=== PATIENT | male | born 1950 | race African-American/Black ===

== ENCOUNTER 2016-12-28 18:00 | Inpatient (IN) | payer OTHER ==
[~2016-12-28] VITALS: Ht 172.7 cm; Wt 98.0 kg
[2016-12-28 18:43] LABS: BASOPHIL % 0.6 % (0-2); PLATELET COUNT 183 x10^3mcL (130-400)
[2016-12-28 19:12] LABS: CK-MB 3.2 ng/mL (0-3.6)
[2016-12-28] MEDS ORDERED: COZAAR100 MG PO (20:36)
[2016-12-28] MEDS ORDERED: NOR10 (20:36)
[2016-12-28] MEDS ORDERED: SYMBICORT1 AE3 (20:38)
[2016-12-28] MEDS ORDERED: LOSARTAN POTAS100 M1 PO (20:40)
[2016-12-28] MEDS ORDERED: AMLODIPINE BESY10 M2 PO (20:40)
[2016-12-28] MEDS ORDERED: LATANOPROST2.5 ML OU (20:41)
[2016-12-28] MEDS ORDERED: MONTELUKAST SOD10 M1 PO (20:41)
[2016-12-28 21:12] LABS: ALBUMIN 3.7 g/dL (3.4-5.0); BILIRUBIN TOTAL 0.4 mg/dL (0.20-1.00); CALCIUM 10.2 mg/dL (8.5-10.1); CARBON DIOXIDE 25.6 mmol/L (21-32); CREATININE SERUM 1.4 mg/dL (0.7-1.3); POTASSIUM SERUM 3.5 mmol/L (3.5-5.1); TOTAL PROTEIN, SERUM 6.8 g/dL (6.4-8.2)
[2016-12-28 21:16] LABS: T3 TOTAL 1.05 ng/mL
[2016-12-28 21:17] LABS: FREE T4 0.83 ng/dL (0.76-1.46); FREE THYROXINE INDEX 2.2 ug/dL (1.4-4.5); T4(THYROXINE) 6.8 ug/dL (4.7-13.3)
[2016-12-28 21:18] LABS: CHOLESTEROL/HDL RATIO 3.3
[2016-12-28 22:04] VITALS: BP 129/94
[2016-12-29 00:47] LABS: microscopic required? NO
[2016-12-29 01:25] LABS: urine erythrocyte NEGATIVE (NEGATIVE)
[2016-12-29 03:06] VITALS: BP 110/62
[2016-12-29 06:12] LABS: PLATELET COUNT 176 x10^3mcL (130-400); RED CELL DISTRIBUTION WIDTH 14.2 % (11.5-14.5)
[2016-12-29 06:26] LABS: CALCIUM 10.1 mg/dL (8.5-10.1); CARBON DIOXIDE 22.7 mmol/L (21-32); CHLORIDE SERUM 107 mmol/L (98-107); GFR1 > 60 mL/min; GLUCOSE SERUM 130 mg/dL (74-106); MAGNESIUM 2.3 mg/dL (1.8-2.4); PHOSPHOROUS 2.2 mg/dL (2.5-4.9); POTASSIUM SERUM 3.6 mmol/L (3.5-5.1); SODIUM SERUM 140 mmol/L (136-145); URIC ACID 5.8 mg/dL (3.5-7.2)
[2016-12-29 06:33] LABS: BASOPHIL % 0 % (0-2)
[2016-12-29 10:53] VITALS: BP 108/76
[2016-12-29 18:17] VITALS: BP 109/72
[2016-12-29 21:50] VITALS: BP 107/64
[2016-12-30 06:19] VITALS: BP 116/61
[2016-12-30 07:13] LABS: BASOPHIL % 0.5 % (0-2); PLATELET COUNT 142 x10^3mcL (130-400); RED CELL DISTRIBUTION WIDTH 14.2 % (11.5-14.5)
[2016-12-30 07:18] LABS: CARBON DIOXIDE 25.4 mmol/L (21-32); CHLORIDE SERUM 111 mmol/L (98-107); CREATININE SERUM 1.1 mg/dL (0.7-1.3); GFR1 > 60 mL/min; GLUCOSE SERUM 83 mg/dL (74-106); POTASSIUM SERUM 3.7 mmol/L (3.5-5.1); SODIUM SERUM 144 mmol/L (136-145)
[2016-12-30 09:42] VITALS: BP 145/97
[2016-12-30 13:02] VITALS: BP 121/82
[2016-12-30 17:16] VITALS: BP 108/70
[2016-12-30 21:29] VITALS: BP 125/92
[2016-12-30 23:59] VITALS: Ht 172.7 cm; Wt 98.0 kg
[2016-12-31 05:30] VITALS: BP 119/83
[2016-12-31 07:16] LABS: BASOPHIL % 0.6 % (0-2); PLATELET COUNT 161 x10^3mcL (130-400); RED CELL DISTRIBUTION WIDTH 14.2 % (11.5-14.5)
[2016-12-31 08:14] LABS: CALCIUM 9.3 mg/dL (8.5-10.1); CARBON DIOXIDE 26.1 mmol/L (21-32); CHLORIDE SERUM 108 mmol/L (98-107); GFR1 > 60 mL/min; GLUCOSE SERUM 89 mg/dL (74-106); MAGNESIUM 2.2 mg/dL (1.8-2.4); PHOSPHOROUS 2.6 mg/dL (2.5-4.9); POTASSIUM SERUM 3.6 mmol/L (3.5-5.1); SODIUM SERUM 141 mmol/L (136-145)
[2016-12-31 09:42] VITALS: BP 141/100
[2016-12-31 12:55] VITALS: BP 138/96
[2016-12-31 16:45] VITALS: BP 138/96
[2016-12-31 17:25] VITALS: BP 132/94
== END 2016-12-31 18:52 | disposition home or self-care (01) | DRG 604 ==
LOC: ED 18:00 → DU 20:21
PROVIDERS: Emergency Medicine; Family Medicine; ADMIT Family Medicine
PROC: 0HQ0XZZ Repair Scalp Skin, External Approach (ICD-10-PCS; principal; 2016-12-28)
DX: S01.01XA Laceration without foreign body of scalp, initial encounter (principal); N17.0 Acute kidney failure with tubular necrosis; E87.0 Hyperosmolality and hypernatremia; J98.11 Atelectasis; J45.909 Unspecified asthma, uncomplicated; E87.8 Other disorders of electrolyte and fluid balance, not elsewhere classified; E04.1 Nontoxic single thyroid nodule; M89.9 Disorder of bone, unspecified; D18.03 Hemangioma of intra-abdominal structures; E83.52 Hypercalcemia; H40.9 Unspecified glaucoma; E78.5 Hyperlipidemia, unspecified; Z68.32 Body mass index [BMI] 32.0-32.9, adult; W18.39XA Other fall on same level, initial encounter; Y93.89 Activity, other specified; Y92.018 Other place in single-family (private) house as the place of occurrence of the external cause
CPT/HCPCS: 83880; 84153; 84439; J1885; J2001; J3490; J7030; J7620; J7633; Q0092; Q9966; Q9967

== ENCOUNTER 2018-10-08 15:21 | Inpatient (IN) | payer OTHER ==
[~2018-10-08] VITALS: Ht 180.3 cm; Wt 79.8 kg
[~2018-10-08 15:21] MED LIST: AMLODIPINE BESY10 M2 PO; COZAAR100 MG PO; LATANOPROST2.5 ML OU; LOSARTAN POTAS100 M1 PO; MONTELUKAST SOD10 M1 PO; NOR10; SYMBICORT1 AE3
[2018-10-08 17:32] LABS: BASOPHIL % 0.7 % (0-2); PLATELET COUNT 223 x10^3mcL (130-400); RED CELL DISTRIBUTION WIDTH 13.5 % (11.5-14.5)
[2018-10-08 17:40] LABS: CALCIUM 10.9 mg/dL (8.5-10.1); CARBON DIOXIDE 26.6 mmol/L (21-32); CHLORIDE SERUM 104 mmol/L (98-107); CREATININE SERUM 1.2 mg/dL (0.7-1.3); GFR1 > 60 mL/min; GLUCOSE SERUM 95 mg/dL (74-106); POTASSIUM SERUM 4.4 mmol/L (3.5-5.1); SODIUM SERUM 138 mmol/L (136-145)
[2018-10-08 17:44] LABS: ALBUMIN 3.4 g/dL (3.4-5.0); ALKALINE PHOSPHATASE 89 U/L (46-116); ALT/SGPT 14 U/L (16-63); AST/SGOT 13 U/L (15-37); BILIRUBIN TOTAL 0.2 mg/dL (0.20-1.00); TOTAL PROTEIN, SERUM 7.2 g/dL (6.4-8.2)
[2018-10-08] MEDS ORDERED: RILUTEK50 MG PO (18:22)
[2018-10-08] MEDS ORDERED: GLYCOPYRROLATE1 M1 PO (18:24)
[2018-10-08 19:11] LABS: CHOLESTEROL/HDL RATIO 2.7; MAGNESIUM 2.5 mg/dL (1.8-2.4); PHOSPHOROUS 3.2 mg/dL (2.5-4.9)
[2018-10-08 19:22] LABS: T3 TOTAL 0.95 ng/mL
[2018-10-08 19:28] LABS: FREE THYROXINE INDEX 2.7 ug/dL (1.4-4.5); T4(THYROXINE) 7.8 ug/dL (4.7-13.3)
[2018-10-08 19:54] VITALS: BP 130/89
[2018-10-08 19:57] VITALS: Ht 180.3 cm; Wt 79.8 kg
[2018-10-09 05:43] VITALS: BP 112/78
[2018-10-09 08:57] LABS: BASOPHIL % 0.7 % (0-2); PLATELET COUNT 207 x10^3mcL (130-400)
[2018-10-09 09:07] LABS: CALCIUM 10.6 mg/dL (8.5-10.1); CARBON DIOXIDE 27.6 mmol/L (21-32); CHLORIDE SERUM 108 mmol/L (98-107); CREATININE SERUM 1.1 mg/dL (0.7-1.3); GFR1 > 60 mL/min; GLUCOSE SERUM 134 mg/dL (74-106); MAGNESIUM 2.2 mg/dL (1.8-2.4); POTASSIUM SERUM 3.8 mmol/L (3.5-5.1); SODIUM SERUM 141 mmol/L (136-145)
[2018-10-09 09:31] VITALS: BP 119/73
[2018-10-09] MEDS ORDERED: ELIQUIS5 MG PO ×2 (13:09→13:10)
[2018-10-09 13:40] VITALS: BP 122/86
[2018-10-09 13:58] VITALS: BP 122/86
== END 2018-10-09 15:23 | disposition home or self-care (01) | DRG 300 ==
LOC: ED 15:21 → DU 18:35
PROVIDERS: Emergency Medicine; Family Medicine; ADMIT Internal Medicine
DX: I82.B12 Acute embolism and thrombosis of left subclavian vein (principal); G12.21 Amyotrophic lateral sclerosis; I82.612 Acute embolism and thrombosis of superficial veins of left upper extremity; I10 Essential (primary) hypertension; E83.52 Hypercalcemia; E83.41 Hypermagnesemia; E78.5 Hyperlipidemia, unspecified; Z68.24 Body mass index [BMI] 24.0-24.9, adult
CPT/HCPCS: 83880; 84439; 85378; J1650; Q0092; Q0163